=== PATIENT | male | born 1950 | race Caucasian/White ===

== ENCOUNTER → 2017-07-04 | Day surgery (SDC) | payer MEDICARE ==
[~2017-07-04] VITALS: Ht 175.3 cm; Wt 120.2 kg
[~2017-07-04] MED LIST: ACETAMINOPHEN/HYDROcodone 325 MG/5 MG TAB ONE; AMLO-172 PO; AMLO10TA2 PO; ASPI81CH6 CHEW; ATOR10TA15 PO; BUPIVACAINE HCL PF 0.5% 30 ML VIAL ONE; BUPIVACAINE/EPINEPHRINE 0.25% PF 30 ML VIAL ONE; CARV6.252 PO; CEPH-460 PO; CHLORHEXIDINE GLUCONATE 2 % 1 PACK (2 CLOTHS) TOPICAL PRN; DEXAMETHASONE SOD PHOS 4 MG/ML VIAL ONE; EMPA1TAB3 PO; EZET1TAB8 PO; FAMOTIDINE 20 MG/2 ML VIAL ONE; HYDR-3288 PO; LACTATED RINGER'S 1000 ML IV PRN; LIDOCAINE HCL 2% 50 ML VIAL ONE; METF1000 PO; METOCLOPRAMIDE HCL 10 MG/2 ML VIAL ONE; METOPROLOL TARTRATE 25 MG TAB PO PRN; MIDAZOLAM HCL 2 MG/2 ML VIAL ONE; NEOMYCIN/POLYMYXIN 1 ML G.U. IRRIGANT ONE; POVIDONE IODINE 5% (ANTISEPSIS KIT) 4 APPLICATIONS EACH NARE PRN; SITA1TAB2 PO; SODIUM CHLORID 0.9% 500 ML IV PRN; SPIR25TA PO; ULOR80TA2; VALS1TAB70 PO; VICT18IN SQ; ceFAZolin 1,000 MG/NS 100 ML IV SCH; ceFAZolin 2 GM PREMIX 50 ML IV SCH; ceFAZolin 2 GM PREMIX 50 ML ONE
[2017-07-04 07:16] LABS: HEMATOCRIT 46.7 % (39.0-51.0); MEAN CELL VOLUME 96.1 FL (80.0-100.0); MEAN CORPUSCULAR HEMOGLOBIN 30.5 PG (27.0-34.0); MEAN CORPUSCULAR HGB CONC 31.8 % (32.0-36.0); PLATELET COUNT 332 TH/MM3 (150-450); RED BLOOD COUNT 4.86 MIL/MM3 (4.50-5.90); RED CELL DISTRIBUTION WIDTH 13.3 % (11.6-17.2); REVIEW FLAG FINAL; WHITE BLOOD COUNT 9.8 TH/MM3 (4.0-11.0)
--- NOTE | 2017-07-04 08:43 | EKG ---
Date Performed: 07/04/2017 Time Performed: 07:01:05 PTAGE: 66 years EKG: Sinus rhythm INFERIOR MYOCARDIAL INFARCTION ANTEROSEPTAL MYOCARDIAL INFARCTION ABNORMAL ECG Compared to prior tami ctrocardiogram, poor Rwave progression is present and STT wave changes have improved. PREVIOUS TRACING : 06/02/2004 10.31 DOCTOR: Jaspal Hilario Interpretating Date/Time 07/04/2017 08:42:58
[2017-07-04 11:35] VITALS: BP 142/75; PULSE 85; RESP 16; TEMP 98.1; O2SAT 93
--- NOTE | 2017-07-04 15:35 | MP ---
cc: ARJUN CORLEY M.D. 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 PROCEDURE Excision of squamous cell carcinoma to the right lower extremity with elliptical incision measuring 5 x 3 cm with double-layer closure. ANESTHESIA General. SURGEON Dr. Corley. INDICATION This is a pleasant gentleman who has a skin lesion on his left upper extremity that Dr. Damian is taking care of; see his operative note. He also has a skin cancer on the right lower extremity. Plans were made for a combined procedure. DETAILS OF PROCEDURE The patient was taken to the operating room and placed in the supine position. After anesthesia his right leg is prepped with Betadine. A timeout is done. I make an elliptical incision measuring 5 x 3 cm in a vertical fashion. The tissue was marked at the 12 o'clock position for orientation. This was passed off the field. I then create flaps medially and laterally and inferior and superiorly to reapproximate the elliptical incision in a double-layer closure using 3-0 Vicryl in the deep layer and 3-0 nylon superficial. After this was done Xeroform gauze was placed, 4x4, Krystina and stockinette. Dr. Damian was performing his portion of the procedure; see his dictation. Arjun Corley MD JDB/BASILIA /9:52 AM /3:22 PM
--- NOTE | 2017-07-05 10:59 | MP ---
cc: RAF DAMIAN III, M.D. 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 PROCEDURE Left hand/5th finger cancer wide local excision with full-thickness skin graft 20 square centimeters. SURGEON Raf Damian III, MD. DETAILS OF PROCEDURE The patient was already in the operating room with Dr. Corley who was attending to the patient's leg. Once he was done I became in charge of the operating theatre. The left upper extremity was prepped and draped in traditional sterile surgical fashion using Hibiclens. A 50/50 mixture of 2% plain lidocaine and 0.5% plain Marcaine was infiltrated in the skin and subcutaneous tissue proximal to the 5th finger mass. 0.5% Marcaine with epinephrine was injected subcutaneously in the left upper inner arm. The limb was elevated and pressure was placed on the brachial artery for one minute. A highly placed well-padded axillary tourniquet was inflated to 200 mmHg for a total of 54 minutes. 6-8 mm margins were outlined around all areas of inflammation surrounding the fungating mass on the dorsal aspect of the left 5th finger. Using a clean knife the mass was excised with minimum of 6 [address] margins all the way around it and subcutaneous tissue down to the knot including the peritenon of the extensor tendon or the neurovascular bundle radially on the small finger. It was passed off the field as a specimen with a double blue stitch in the distal most aspect of it, a single blue stitch on the proximal most aspect of it, and a black silk stitch on the ulnar most aspect of the mass. It was passed off the field as specimen. There is no obvious deep attachment. The peritenon appeared clean. Thorough irrigation with sterile water was performed and pressure was held. An 6.5 x 4 elliptical incision was made in the upper inner arm and the full-thickness skin graft was harvested. Advancement flaps were made to close the wound. Thorough irrigation with sterile water was used. Of note, after the cancerous lesion was resected and passed off the field as a specimen all members of the operative team changed into new gloves and brand new sterile instruments were then used. The full-thickness graft was then tailored to fit and was secured in place covering the entirety of the wound using interrupted and running 3-0 and 4-0 chromic sutures leaving some gaps for any drainage that might occur. It was snug and was not floating anywhere. The donor site was then closed after advancement flaps were made. Thorough irrigation using sterile water was used. Deep 3-0 Vicryl sutures were made and the skin edges re-approximated using running 4-0 nylon. The hand and arm were thoroughly cleansed and dried. A Xeroform bolster dressing was applied atop the skin graft followed by a bulky gauze dressing and then a well-padded, well-molded short-arm immobilizing whole-hand splint was made in the usual fashion. The donor site was covered with Adaptic and sterile OpSite. The tourniquet was released prior to closure of the donor site and the hand and all the fingers became immediately soft, pink and warm including the 5th finger with no evidence of bleeding. There was no hematoma formation. Capillary refill was less than two seconds the entire time. The patient was awakened from anesthesia and transported to the post-anesthesia care unit awake and in stable condition at the end of the case. Sponge, needle and instrument counts were correct at the end of the case as reported by the nurses in the room. MD THOM Leung III/BASILIA /10:00 AM /10:39 AM LINDA
== END | disposition home or self-care (01) ==
LOC: PHSDC 06:06
PROVIDERS: ATTEND Orthopaedic Surgery Hand Surgery
DX: C44.722 Squamous cell carcinoma of skin of right lower limb, including hip (principal); C44.629 Squamous cell carcinoma of skin of left upper limb, including shoulder; R94.31 Abnormal electrocardiogram [ECG] [EKG]
CPT/HCPCS: 00400; 11606; 12032; 14041; 15240; 15241; 36415; 85027; 88305; 93005; J0690; J1100; J2250; J2765; J7120